=== PATIENT | female | born 1990 | race Two or more races ===

== ENCOUNTER 2020-05-02 11:04 | Emergency (ER) | payer OTHER ==
--- NOTE | 2020-05-02 12:19 | RADIOLOGY REPORT (SQ) ---
EXAM DESCRIPTION: KNEE RIGHT 4 VIEWS IMAGES COMPLETED DATE/TIME: 05/02/2020 12:11 pm REASON FOR STUDY: fall, right knee pain, anterior COMPARISON: None. NUMBER OF VIEWS: Four views. TECHNIQUE: AP, lateral, and both oblique radiographic images acquired of the right knee. LIMITATIONS: None. FINDINGS: MINERALIZATION: Normal. BONES: No acute fracture or dislocation. No worrisome bone lesions. JOINT: Small joint effusion SOFT TISSUES: No soft tissue swelling. No radio-opaque foreign body. OTHER: No other significant finding. IMPRESSION: Small joint effusion without evidence of acute bony abnormality. TECHNICAL DOCUMENTATION: JOB ID: [id number] 2010 [employer]- All Rights Reserved Reading location - IP/workstation name: [email or web address]
--- NOTE | 2020-05-02 12:33 | ER Document Report ---
HPI - HPI Time Seen by Provider: 05/02/20 11:53 Pain Level: Denies Context: Patient is a 30-year-old female who presents emergency department with a chief complaint of right knee pain. Patient reports last night she was running down the hallway and an attempt to jump over a chair. She was running down the hallway her right ankle gave out on her causing her to fall onto her right knee. Patient reports that it was more of a twisting motion to the knee when she fel l. Patient reports she does have a history of a weak ankle. Patient reports she has not taken anything for her discomfort. Patient states she is concerned that there may be something broken. Patient is able to bear weight but does report pain with flexion extension. - CONSTITUTIONAL Constitutional: DENIES: Fever, Chills Past Medical History - General Information source: Patient - Social History Smoking Status: Never Smoker Frequency of alcohol use: Social Lives with: Family Family History: None - Past Medical History Cardiac Medical History: Reports: None Pulmonary Medical History: Reports: Hx Asthma EENT Medical History: Reports: None Neurological Medical History: Reports: None Endocrine Medical History: Reports: None Renal/ Medical History: Reports: None Malignancy Medical History: Reports: None GI Medical History: Reports: None Musculoskeletal Medical History: Reports None Skin Medical History: Reports None Psychiatric Medical History: Reports: None Traumatic Medical History: Reports: None Infectious Medical History: Reports: None Surgical Hx: Negative Vertical Provider Document - CONSTITUTIONAL Agree With Documented VS: Yes Exam Limitations: No Limitations General Appearance: No Apparent Distress - HEENT HEENT: Atraumatic, Normal ENT Exam, Normocephalic, PERRLA - NECK Neck: Normal Inspection - RESPIRATORY Respiratory: Breath Sounds Normal, No Respiratory Distress - CARDIOVASCULAR Cardiovascular: Regular Rate, Regular Rhythm - GI/ABDOMEN Gastrointestinal: Abdomen Soft, Abdomen Non-Tender, Normal Bowel Sounds - MUSCULOSKELETAL/EXTREMETIES Musculoskeletal/Extremeties: FROM Notes: Diffuse tenderness to the anterior knee. There is no ecchymosis. Slight edema when compared to the left knee. Patient can flex and extend although this does cause pain. Patient has a +2 palpable popliteal, dorsalis pedis and posterior tibial pulse. - NEURO Level of Consciousness: Awake, Alert, Appropriate - DERM Integumentary: Warm, Dry, No Rash Course - Vital Signs Vital signs: Temp Pulse Resp BP Pulse Ox 98.1 F 80 18 137/86 H 100 05/02/20 11:50 05/02/20 11:50 05/02/20 11:50 05/02/20 11:50 05/02/20 11:50 - Diagnostic Test Radiology reviewed: Reports reviewed Radiology results interpreted by me: 05/02/20 12:36 Knee X-Ray 05/02/20 11:57 IMPRESSION: Small joint effusion without evidence of acute bony abnormality. Discharge - Discharge Clinical Impression: Right knee injury Qualifiers: Encounter type: initial encounter Qualified Code(s): S89.91XA - Unspecified injury of right lower leg, initial encounter Condition: Stable Disposition: HOME, SELF-CARE Additional Instructions: Today are seen in the emergency department for right knee pain. Your x-ray was negative for any acute bony abnormality. It did show a small knee effusion. This should improve on its own. Please use the crutches and in a padded Km wrap for comfort. Please rest over the next few days, elevating, icing. Can use anti-inflammatories such as [id number] ibuprofen, Aleve. Knee Effusion You have a fluid collection in the knee joint, called an effusion. This fluid build up can occur from irritation of the synovial membrane lining the knee joint or from a more serious injury to the knee. Irritation of the membrane can occur from excessive, repetitive knee activitiy, like kneeling or squatting for extended periods or even just excessive walking, jogging, or skiing. Effusions also can occur with infections in the joint and with some arthritic conditions, especially gout. Fluid collections in these situations are usually yellow in color and either clear or cloudy in appearance. Significant injury to the knee can result in fluid collection which is partly or entirely blood and this condition is known as a hemarthrosis of the knee joint. If the fluid collection is not too large and/or painful, it can be managed conservatively with rest, ice packs, and anti-inflammatory and pain medications as needed. If the fluid collection is large and very painful, the knee joint can be drained (aspirated) by a relatively minor procedure of inserting a needle in the joint and removing some or all of the fluid present. If your knee was aspirated, you should rest it as much as possible for a few days, keep a pressure dressing around the knee and apply ice packs for at least 48 - 72 hours. If there are signs of developing infection such as heat and redness of the knee, fever, etc. you should return immediately for a recheck. Forms: Return to Work Referrals: MARCELINA CARRASCO, DO [ACTIVE STAFF] - Follow up as needed
[2020-05-02 13:01] VITALS: BP 130/72
== END 2020-05-02 12:51 | disposition home or self-care (01) ==
LOC: ER 11:04
DX: S80.01XA Contusion of right knee, initial encounter (principal); M25.461 Effusion, right knee; W19.XXXA Unspecified fall, initial encounter; Y93.89 Activity, other specified; J45.909 Unspecified asthma, uncomplicated
CPT/HCPCS: 99283